=== PATIENT | male | born 1970 | race Caucasian/White ===

== ENCOUNTER 2017-03-30 18:12 | Emergency (ER) | payer OTHER ==
--- NOTE | ~2017-03-30 | EKG ---
PATIENT: ESTER RIOS UNIT #: [id number] Ventricular Rate: 77 BPM Atrial Rate: 77 BPM P-R Interval: 140 ms QRS Duration: 84 ms Q-T Interval: 348 ms QTC Calculation(Bezet): 393 ms P [place]: 49 degrees Calculated R [place]: 23 degrees Calculated T [place]: 18 degrees Diagnosis Line: Normal sinus rhythm Diagnosis Line: Septal infarct , age undetermined Diagnosis Line: Abnormal ECG Diagnosis Line: No previous ECGs available Diagnosis Line: Confirmed by MONICO INFANTE MD ([id number]) on Diagnosis Line: 03/31/2017 1:51:09 PM INTERPRETING MD: NARESH JACOBO
--- NOTE | ~2017-03-30 | CR63 ---
[facility]. [facility] A Service of [facility] & [facility] RADIOLOGY TEXT RESULTS PATIENT: ESTER RIOS LOCATION: SED : 72 UNIT #: [id number] AGE: [address]: Dinesh Bush MD SEX: M ORDER DR: [id number] [place] [id number] E MR#: [id number] Acc #: [id number] NAME: ESTER RIOS. : 1970 SEX: M STUDY DATE/TIME: 03/30/2017 20:22 UNIT: SED ROOM: STUDY DESCRIPTION: CR Chest 2 View Attending Physician: Dinesh Bush M.D. Ordering Physician: Dinesh Bush M.D. MEDICAL IMAGING REPORT This report is preliminary unless electronic signature is present. EXAM Two-view chest 03/30/2017. HISTORY 47-year-old male with shortness of air and chest pain for 2 days. COMPARISON Chest 07/12/2013. FINDINGS 2 views of the chest demonstrate clear lungs. No pleural effusion or pneumothorax. Heart size and mediastinum normal. Pulmonary vasculature normal. IMPRESSION No acute cardiopulmonary findings. Dictated by... Chandra Heranndez M.D. THIS IS AN ELECTRONICALLY VERIFIED REPORT Chandra Hernandez M.D. at 03/31/2017 10:43 AM SHAHRIAR/frances TD: 03/31/2017 10:21 JOB #: [id number] MEDICAL IMAGING REPORT Page 1 of 1
[2017-03-30 20:03] LABS: BASOPHIL# 0.1 X10e3 (0-0.3); EOSINOPHIL# 0.1 X10e3 (0-0.7); EOSINOPHIL% 0.8 % (0.0-7.0); HEMATOCRIT 45.1 % (38.0-50.0); HEMOGLOBIN 15.5 gm/dL (13.0-16.0); LYMPHOCYTE# 2.2 X10e3 (1.0-3.5); LYMPHOCYTE% 24.8 % (17.0-45.0); MEAN CELL VOLUME 89.8 FL (83-96); MEAN CORPUSCULAR HEMOGLOBIN 30.8 PG (28-34); MEAN CORPUSCULAR HGB CONC 34.3 g/dL (30-36); MEAN PLATELET VOLUME 8.7 FL (6.5-11.5); MONOCYTE# 0.7 X10e3 (0-1.0); MONOCYTE% 7.9 % (3.0-12.0); NEUTROPHIL# 5.7 X10e3 (1.5-7.1); NEUTROPHIL% 65.5 % (40-75); PLATELET COUNT 268 X10e3 (140-420); RED BLOOD COUNT 5.02 X10e (3.90-5.60); RED CELL DISTRIBUTION WIDTH 12.6 % (11.0-15.5); WHITE BLOOD COUNT 8.7 X10e3 (4.0-10.5)
[2017-03-30 20:05] LABS: DIFF IND NO
[2017-03-30 20:16] LABS: POC - CKMB <1.0 ng/mL (0.0-7.9); POC - MYOGLOBIN 69.3 ng/mL (0.0-169.0)
[2017-03-30 20:17] LABS: POC - TROPONIN <0.05 ng/mL (<=0.05)
[2017-03-30 20:17] LABS: BUN/CREATININE RATIO 12.72; CALCIUM SERUM 8.8 mg/dL (8.4-10.2); CREATININE SERUM 1.1 mg/dL (0.6-1.4); GLOM FILT RATE Estimated 80.1 mL/min (>60); POTASSIUM 3.4 mmol/L (3.5-5.1)
[2017-03-30 20:48] LABS: URINE SOURCE CLEAN CATCH
[2017-03-30 20:50] LABS: URINE APPEARANCE CLEAR; URINE BILIRUBIN NEG (NEG); URINE BLOOD NEG (NEG); URINE COLOR YELLOW; URINE GLUCOSE NEG (NORM); URINE KETONE NEG (NEG); URINE LEUKOCYTE ESTERASE NEG (NEG); URINE NITRATE NEG (NEG); URINE PH 6.5 (5-8); URINE PROTEIN NEG (NEG); URINE UROBILINOGEN 0.2 MG/DL (NORM)
[2017-03-30 20:59] LABS: MICRO INDICATED? NO
== END 2017-03-30 21:28 | disposition home or self-care (01) ==
LOC: SED 18:12
PROVIDERS: Emergency Medicine
DX: I10 Essential (primary) hypertension (principal); F41.9 Anxiety disorder, unspecified; R06.00 Dyspnea, unspecified; F17.210 Nicotine dependence, cigarettes, uncomplicated
CPT/HCPCS: 36415; 71020; 80048; 81003; 82553; 83874; 84484; 85025; 85379; 93005; 96374; 99284